=== PATIENT | female | born 1985 | race Caucasian/White ===

== ENCOUNTER 2018-04-30 10:56 | Outpatient (CLI) | payer MEDICAID, SELFPAY ==
[2018-04-30 12:18] LABS: HCG Quant, Pregnancy 12 mIU/mL (1-3)
== END 2018-04-30 10:57 ==
PROVIDERS: PCP Nurse Practitioner Family; Visit Provider Obstetrics & Gynecology Gynecology
DX: O00.90 Unspecified ectopic pregnancy without intrauterine pregnancy (principal)
CPT/HCPCS: 36415; 84702

== ENCOUNTER 2018-05-15 18:49 | Outpatient (REF) | payer MEDICAID, SELFPAY ==
[2018-05-15 21:20] LABS: TSH 2.04 uIU/mL (0.358-3.74)
== END 2018-05-15 18:50 ==
LOC: NCHCN 18:49
PROVIDERS: PCP Nurse Practitioner Family; Visit Provider Nurse Practitioner Family
DX: F41.1 Generalized anxiety disorder (principal); F43.10 Post-traumatic stress disorder, unspecified; Z86.59 Personal history of other mental and behavioral disorders
CPT/HCPCS: 84443

== ENCOUNTER 2018-06-12 14:49 | Outpatient (CLI) | payer MEDICAID, SELFPAY ==
[2018-06-12 16:41] LABS: HCG Quant, Pregnancy < 1 mIU/mL (1-3)
== END 2018-06-12 15:09 ==
PROVIDERS: Obstetrics & Gynecology; PCP Nurse Practitioner Family; Visit Provider Obstetrics & Gynecology Gynecology
DX: O00.90 Unspecified ectopic pregnancy without intrauterine pregnancy (principal)
CPT/HCPCS: 36415; 84702

== ENCOUNTER 2018-06-13 06:27 | Day surgery (SDC) | payer MEDICAID, SELFPAY ==
[2018-06-13] VITALS (8 sets, daily range): BP systolic 111–134; BP diastolic 67–80; PULSE 86–100; RESP 13–19; TEMP 36.2–36.8; O2SAT 94–98
--- NOTE | 2018-06-13 01:19 | HPE_ITS ---
Date of service: 06/12/18 Time of Service: 17:09 Assessment and Plan (1) Request for sterilization: Current visit: Yes Status: Acute (2) Abnormal uterine bleeding (AUB): Current visit: Yes Status: Acute Informed consent obtained risk of the procedure including bleeding injury to bowel bladder surrounding structures was described in detail to the patient she was given the opportunity to ask questions and have her questions answered. History of Present Illness Chief Complaint: Preoperative history and physical Narrative: Ms. Nino is a 32-year-old 012 female who presents for a preoperative history and physical in anticipation of a laparoscopic bilateral salpingectomy on 06/13/2018 patient has been seen in March and counseled regarding permanent sterilization. She is does not desire any future pregnancies she declines a Mirena IUD and has had 2 prior tubal sterilization as one the time of delivery and most recently as interval tubal sterilization after a following the tubal sterilization at the time of her delivery. Past OB history 2009 delivery of a male infant Marvin. 2010 repeat delivery female Chitra bilateral tubal sterilization performed at the time of the 2013 resulting in embryonic demise treated with a D&C 03/2016 positive home test serum hCG 150mIU/ml. Treated with methotrexate quantitative hCGs followed to normal. Review of Systems Constitutional Reports as per HPI Cardiovascular Reports system reviewed and no additional complaints, except as docu Respiratory Reports system reviewed and no additional complaints, except as docu Gastrointestinal Reports hematochezia (Reports bright red blood when wiping after BMs. 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 Smoking/Tobacco Use Status: Current every day alcohol intake: never seatbelt use: always Surgical History section Ligation of fallopian tube Female Reproductive History Menstrual Total pregnancies: 4 Full term: 2 Premature: 0 Ab induced: 0 Ab spontaneous: 1 Ectopics: 1 Multiple births: 0 Meds Home Medications Medication Instructions Recorded Confirmed Type sumatriptan succinate [Imitrex] 25 mg PO PRN 12/14/16 06/12/18 History buspirone 7.5 mg PO BID tab-cap 04/17/18 06/12/18 History fluoxetine 20 mg PO HS 04/17/18 06/12/18 History hydroxyzine HCl 25 mg PO PRN 04/17/18 06/12/18 History cholecalciferol (vitamin D3) 1,000 unit PO DAILY 06/12/18 06/12/18 History [Vitamin D3] ranitidine HCl [Zantac] 150 mg PO BID 06/12/18 06/12/18 History Allergies Allergy/AdvReac Type Severity Reaction Status Date / Time No Known Allergies Allergy Unverified 06/13/18 06:46 Exam Const General: cooperative, comfortable and no acute distress Nutritional Appearance: average body habitus Orientation: alert, awake and oriented x3 Resp Effort & Inspection: normal respiratory effort Auscultation: clear to auscultation bilaterally Cardio Jugular venous pressure: no JVD Palpation: normal PMI Rate: regular rate Rhythm: regular rhythm Heart Sounds: S1 normal and S2 normal GI Inspection: normal to inspection Palpation: soft and no hepatosplenomegaly Rectal Exam - female: deferred and other Back/Spine/Pelvis Back: no CVA tenderness Skin General skin exam: no rashes or lesions noted
[2018-06-13 06:53] LABS: HGB 12.3 g/dL (12.0-15.5); Mean Corp. HGB Concentration 33.2 g/dL (32.0-36.0); Mean Corpuscular Hemoglobin 30.5 pg (27.0-33.0); Mean Corpuscular Volume 91.8 fL (80-95); Mean Platelet Volume 9.4 fL (8.0-11.0); Platelet Count 216 x1000/uL (130-400); RBC 4.03 m/cumm (4.00-5.20); RBC Distribution Width 13.9 % (11.7-14.6)
[2018-06-13] MEDS: Lactated Ringers 1,000 ML 30 ML IV (07:07)
--- NOTE | 2018-06-13 08:55 | FALL_PTH ---
PATIENT: Delmy Morales LOC: [facility] U#:[id number] AGE/SX: 32/F ROOM: RE06/13/[address]: Niurka Correa : 1985 BED: DIS: 06/13/2018 SPEC #: [id number] RECD: 06/13/18 12:17 STATUS: NINFA WOMACK #: [id number] JOSH: 06/13/18 08:[address]: Niurka Correa DEPT: Surgical Specimen RECD BY: Galo Khan ENTERED: 06/13/18 12:20 SP TYPE: Fall OTHR DR: Taina Khan Tissues: 1 - FALLOPIAN TUBE (STERILIZATION) 2 - FALLOPIAN TUBE (STERILIZATION) 3 - VULVA BIOPSY Procedures: GROSS AND MICRO LEVEL 2 GROSS AND MICRO LEVEL 4 Comments: [id number]
[2018-06-13] MEDS: Bupivacaine 0.25% Pres-Free 30 ML VIAL (09:29)
[2018-06-13] MEDS: Silver Nitrate Stick 2 EACH (09:32)
[2018-06-13] MEDS: fentaNYL 100 MCG/2 ML VIAL IVP ×2 (10:04→10:11)
[2018-06-13] MEDS: HYDROmorphone 2 MG/ML VIAL IVP ×3 (10:09→10:29)
[2018-06-13] MEDS: Lactated Ringers 1,000 ML 125 ML IV (10:34)
[2018-06-13] MEDS: oxyCODONE 5 mg/Acetaminophen 325 mg TAB PO (11:07)
--- NOTE | 2018-06-13 20:42 | W.PM.OP ---
Date of service: 06/13/18 Time of Service: 20:42 Operative Note DATE OF PROCEDURE: 06/13/18 PRE-OP DIAGNOSIS: History of previous SABs after tubal sterilization POST-OP DIAGNOSIS: other (1. history of previous SABs after tubal sterilization 2. Pigmented nevi on right labia. 3. Hidradenitis suprativa of vulva) PROCEDURE: 1. Diagnostic laparoscopy with removal of distal right and left fallopian tubes. 2. Cauterization of bilateral uterine cornua. 3. Chromopertubation 4. Punch biopsy of pigmented nevus right labia minora. SURGEON: Niurka Correa [employer] FABRICATOR: Rosario Hernandes ANESTHESIA: GETA ESTIMATED BLOOD LOSS: 0 PATHOLOGY: other (Right and left distal fallopian tubes, right labia minora punch biopsy) COMPLICATIONS: None Patient was transported to: same day Patient's condition: stable Implants: None Indications: Patient is a 32-year-old female who underwent a tubal sterilization the time of a repeat delivery. She subsequently became with an experienced an embryonic demise. After that she then had a laparoscopic reexcision of fallopian tubes. In March she experienced a repeat with a low hCG and what appeared to be a ectopic location adnexa. She was treated with methotrexate with appropriate decline of her hCG. Findings: The uterine cornua showed excision of the proximal fallopian tube from the cornua to the mid isthmic portion. The distal fallopian tubes present and normal in appearance. The chromopertubation showed no leakage of methylene blue despite instillation of 30 cc of dye. It was unclear from the operative findings where the ectopic may have originated from. On examination of the vulva prior to the perineal prep there was a 2 mm dark pigmented flat region on the labia minora with an adjacent 2 mm flat pigmented lesion. Finding of hidradenitis suprativa bilaterally on vulva. Procedure Description: Patient was taken to the operating room where she is placed in the dorsal supine position and general endotracheal anesthesia was administered without difficulty. She was then placed in the dorsal lithotomy position in yellowfin stirrups in a neurologically neutral position. She was prepped and draped in the usual sterile fashion. The pigmented labia and the vulvar skin condition was noted at that time. A HSG catheter was inserted into the uterine cavity and left in place with methylene blue dye attached and a syringe. Attention was turned to her abdomen where the periumbilical skin was infiltrated with quarter percent Marcaine without epinephrine the skin incision was made in a transverse fashion below the umbilicus using a scalpel and the underlying subcutaneous tissue dissected bluntly to the level of the rectus fascia. Rectus fascia was then tented up 2 Koker clamps incised with curved Diaz scissors and the abdomen entered without difficulty. The rectus fascia was tagged with 0 Vicryl suture was held long. A 12 mm on trocar and sleeve were placed through the incision and pneumoperitoneum was achieved using carbon dioxide gas. Patient was placed in trendelenburg and a laparoscope was inserted and intra-abdominal placement confirmed. Two 5 mm skin incisions were made 2 cm medial to the anterior superior iliac crest after infiltration with quarter percent Marcaine. Under direct visualization 5 mm port was placed in each incision.. The uterus was carefully inspected with the above-noted findings. There is no evidence of any fallopian tube at the uterine cornua. No evidence of adhesive tissue at either uterine cornua and on chromopertubation no evidence of spillage of methylene blue from the uterine cornua or anywhere else along the uterine body. The fimbriated end of the right fallopian tube was grasped followed out to where it had been transected from the isthmic portion of the now missing fallopian tube and using a LigaSure bipolar device the fallopian tube was clamped and cauterized and transected from its attachments to the ovary. Once the right fallopian tube had been detached it was delivered through the 5 mm left port. A similar technique was carried out on the contralateral Thakur tube and it was detached without difficulty and delivered through the left port. Both pedicle sites were hemostatic at the completion of the procedure. After repeat inspection of the patient's pelvis and pedicle sites both 5 mm trochars were removed under direct visualization and the sites were noted be hemostatic. The 12 mm umbilical port was removed and pneumoperitoneum reduced and the umbilical incision reapproximated with interrupted sutures of 0 Vicryl. The skin of the umbilical incision was reapproximated with a subcuticular closure using 4-0 Vicryl. The 2 lower port sites were closed with skin glue. Attention was then turned to the patient's vulva where the skin of the right labial lesion was infiltrated with 1cc of 0.25% Marcaine and a 3 mm millimeters punch biopsy was performed. The tissue was collected and sent to pathology. The biopsy site was treated with silver nitrate and excellent hemostasis was achieved. HSG catheter bulb was deflated and the catheter removed. The patient was placed in the dorsal supine position awakened from anesthesia extubated transported to recovery area in stable condition all sponge lap and needle counts are correct ?2 she had SCDs in place during the entire case
== END 2018-06-13 11:40 | disposition home or self-care (01) ==
PROVIDERS: PCP Nurse Practitioner Family; Visit Provider Obstetrics & Gynecology Gynecology
PROC: (CPT 58661; principal; 2018-06-13 07:30)
DX: N99.89 Other postprocedural complications and disorders of genitourinary system (principal); L73.2 Hidradenitis suppurativa; D28.0 Benign neoplasm of vulva
CPT/HCPCS: 49320; 56605; 58350; 36415; 85027; 86850; 86900; 86901; 88305; NC; 88302; J1100; J1885; J2250; J2405; J3010

== ENCOUNTER 2018-08-10 02:49 | Outpatient (CLI) | payer MEDICAID, SELFPAY | END 2018-08-10 03:09 | PROVIDERS: PCP Nurse Practitioner Family; Visit Provider Nurse Practitioner Family | DX: R06.09 Other forms of dyspnea (principal) ==

== ENCOUNTER 2018-11-18 07:22 | Emergency (ER) | payer MEDICAID, SELFPAY ==
[2018-11-18 07:30] VITALS: BP 128/83; PULSE 117; RESP 16; TEMP 36.5; O2SAT 99
[2018-11-18] MEDS: Bupivacaine 0.5% Pres-Free 30 ML VIAL (08:30)
--- NOTE | 2018-11-18 08:41 | ED.GENADUL_ITS ---
Discharge Plan Disposition Patient Disposition: HOME Condition: Improving Discharge Details Chief Complaint: DentalOral Clinical Impression: Odontalgia Primary Care Provider: Carmen Mehta ED Provider: Bartolo Wharton Home Meds and New Rx's Prescriptions: New clindamycin HCl 300 mg capsule 300 mg PO QID Qty: 30 RF: 0 Continued ibuprofen 600 mg tablet 600 mg PO QID PRN (Reason: pain) Qty: 30 RF: 0 sumatriptan succinate [Imitrex] 25 MG tablet 25 mg PO PRN RF: 0 buspirone 7.5 MG tablet 7.5 mg PO BID RF: 0 hydroxyzine HCl 25 MG tablet 25 mg PO PRN RF: 0 fluoxetine 20 MG capsule 20 mg PO HS RF: 0 ranitidine HCl [Zantac] 150 mg Tablet 150 mg PO BID RF: 0 cholecalciferol (vitamin D3) [Vitamin D3] 1,000 unit Tablet 1,000 unit PO DAILY RF: 0 Discharge Instructions Instructions: Toothache (ED) Additional Instructions: Please follow-up with dentistry as planned. Tylenol and/or ibuprofen as needed for pain. Please take clindamycin as prescribed. You may stop the amoxicillin. Medical Decision Making 33-year-old female with odontalgia, chronic dental caries and missing teeth with plans for follow-up with dentistry. She has been on amoxicillin day 9 out of 10. She arrives in distress with right mandibular pain. No clear evidence of fluctuance.. Patient given a right inferior alveolar dental block with a 50-50 mix of 2 cc of lidocaine and Marcaine. Will place on clindamycin. She is given analgesia by mouth in the ED. Stable for outpatient management. Given information for additional dental resources. HPI General Mode of arrival: ambulatory . Date/Time Provider Initiated Documentation: 11/18/18 08:04 . Limitations to Documentation: no limitations . Information obtained by: patient . History of Present Illness 33 year old F presents to the emergency department with the chief complaint of Right lower dental pain, plan for extraction, on amoxicillin , described as moderate, Quality is described as aching, and is localized to the mouth and right. Patient reports no radiation. Patient started experiencing this day(s) and it has been constant. No relieving factors improve symptom(s), No exacerbating factors reported . Patient notes no other symptoms.. Patient did receive the following treatments prior to arrival, NSAID and other (Amoxicillin day 9 of 10) Related Data Home Medications Medication Instructions Recorded Confirmed sumatriptan succinate [Imitrex] 25 mg PO PRN 12/14/16 11/18/18 buspirone 7.5 mg PO BID tab-cap 04/17/18 11/18/18 fluoxetine 20 mg PO HS 04/17/18 11/18/18 hydroxyzine HCl 25 mg PO PRN 04/17/18 11/18/18 cholecalciferol (vitamin D3) 1,000 unit PO DAILY 06/12/18 11/18/18 [Vitamin D3] ranitidine HCl [Zantac] 150 mg PO BID 06/12/18 11/18/18 ibuprofen 600 mg tablet 600 mg PO QID PRN #30 tab 06/13/18 11/18/18 clindamycin HCl 300 mg PO QID #30 cap 11/18/18 Previous Rx's Medication Instructions Recorded ibuprofen 600 mg tablet 600 mg PO QID PRN #30 tab 06/13/18 clindamycin HCl 300 mg PO QID #30 cap 11/18/18 Allergies Allergy/AdvReac Type Severity Reaction Status Date / Time No Known Allergies Allergy Unverified 11/18/18 07:33 General Stated Complaint: DentalOral FRANKO: 4 Review of Systems Review of Systems 8 systems reviewed and otherwise neg PFSH Medical History Migraines (Chronic) Anxiety (Chronic) Depression (Chronic) Tobacco use (Acute) Surgical History section Ligation of fallopian tube Family History Father Heart disease Social History household members: other details: [employer] CHILDREN highest education level completed: some college, no degree Smoking and Tabacco status: Current every day alcohol intake: never Seatbelt use: always Female Reproductive History Menstrual control method: permanent sterilization History History 4 Para Hx # Term Pregnancies 2 Multiple births 0 Hx # Pregnancies 0 Ectopic pregnancies 1 AB induced Hx Number of Living Children AB spontaneous Exam Narrative Exam Narrative: GEN: awake, alert, oriented 3. Pleasant, tearful and anxious HEAD: Normocephalic, atraumatic ENT: Mucous membranes moist, partially edentulous with upper denture plate. Numerous dental caries and missing teeth lower. Tender along right mandible, no fluctuance. No buccal or lingual swelling. EYES: PERRL, EOMI NECK: Full ROM, no LIZETTE, no menigismus EXT: Full ROM, no edema, no rash Neuro: Grossly normal neurologic exam, conversant, interactive. Psych: Speech fluent, thoughts congruent, affect anxious Course Vital Signs Temperature 36.5 C 11/18/18 07:30 Pulse 117 H 11/18/18 07:30 Respiratory Rate 16 11/18/18 07:30 Blood Pressure 128/83 11/18/18 07:30 Pulse Oximetry 99 11/18/18 07:30 Temperature 36.5 C 11/18/18 07:30 Temperature Source Skin 11/18/18 07:30 Pulse 117 H 11/18/18 07:30 Respiratory Rate 16 11/18/18 07:30 Respiratory Effort Non-Labored 11/18/18 07:30 Blood Pressure 128/83 11/18/18 07:30 Blood Pressure Position Sitting 11/18/18 07:30 Pulse Oximetry 99 11/18/18 07:30 Oxygen Delivery Method Room Air 11/18/18 07:30 Oxygen Flow Rate 0 11/18/18 07:30 Pain Level 9 11/18/18 07:30
[2018-11-18] MEDS: HYDROcodone 5/Acetaminophen 325 TAB PO (09:23)
== END 2018-11-18 08:55 | disposition home or self-care (01) ==
PROVIDERS: Emergency Provider Emergency Medicine; PCP Nurse Practitioner Family
DX: R68.84 Jaw pain (principal); K08.89 Other specified disorders of teeth and supporting structures; K02.9 Dental caries, unspecified
CPT/HCPCS: 64402

== ENCOUNTER 2018-11-20 17:20 | Emergency (ER) | payer MEDICAID, SELFPAY ==
[2018-11-20 17:25] VITALS: BP 138/105; PULSE 89; RESP 20; TEMP 36.8; O2SAT 98
--- NOTE | 2018-11-20 17:41 | ED.GENADUL_ITS ---
Discharge Plan Disposition Patient Disposition: HOME Condition: Improving Discharge Details Chief Complaint: DentalOral Clinical Impression: Dental infection Primary Care Provider: Carmen Mehta ED Provider: Bartolo Wharton Home Meds and New Rx's Prescriptions: Continued ibuprofen 600 mg tablet 600 mg PO QID PRN (Reason: pain) Qty: 30 RF: 0 sumatriptan succinate [Imitrex] 25 MG tablet 25 mg PO PRN RF: 0 buspirone 7.5 MG tablet 7.5 mg PO BID RF: 0 hydroxyzine HCl 25 MG tablet 25 mg PO PRN RF: 0 fluoxetine 20 MG capsule 20 mg PO HS RF: 0 ranitidine HCl [Zantac] 150 mg Tablet 150 mg PO BID RF: 0 cholecalciferol (vitamin D3) [Vitamin D3] 1,000 unit Tablet 1,000 unit PO DAILY RF: 0 clindamycin HCl 300 mg capsule 300 mg PO QID Qty: 30 RF: 0 Discharge Instructions Additional Instructions: Home to rest this evening. Continue to hydrate with frequent sips of fluids. Ibuprofen 800 mg every 8 hours, with food. May use the provided hydrocodone for breakthrough pain if needed every 6 hours. Return tomorrow for recheck as we discussed. May return sooner for any acute concern. Medical Decision Making 33-year-old female presents from home with ongoing right-sided dental pain persistent since I saw her this past weekend. She is controlling her secretions, is not a change to voice, maintained her ability to swallow without difficulty. She does have soft tissue swelling on the right side of the face and is referred for laboratory testing and CT scan to rule out abscess/fluid collection. Patient's laboratories note a white blood cell count of 10, unremarkable chemistries. CT reveals irregularity of the maxilla and question of possible osteomyelitis. No focal fluid collection. Do not clinically feel that this represents osteomyelitis, but I do feels reasonable to administer a parenteral dose of clindamycin in the emergency department tonight, and have the patient return for recheck tomorrow at which point final reading of her CAT scan will be available and clinically she can be reevaluated. She will continue oral antibiotics as previously prescribed, NSAIDs, and will be dispensed small number of hydrocodone for home use this evening. HPI General Mode of arrival: ambulatory . Date/Time Provider Initiated Documentation: 11/20/18 17:28 . Limitations to Documentation: no limitations . Information obtained by: patient . History of Present Illness 33 year old F presents to the emergency department with the chief complaint of Right lower dental infection, pain, described as moderate, Quality is described as aching and dull, and is localized to the face and right. and it has been constant. No relieving factors improve symptom(s), No exacerbating factors reported . Patient notes other (No change to voice, no drooling); denies fever/chills. Patient did receive the following treatments prior to arrival, NSAID Related Data Home Medications Medication Instructions Recorded Confirmed sumatriptan succinate [Imitrex] 25 mg PO PRN 12/14/16 11/20/18 buspirone 7.5 mg PO BID tab-cap 04/17/18 11/20/18 fluoxetine 20 mg PO HS 04/17/18 11/20/18 hydroxyzine HCl 25 mg PO PRN 04/17/18 11/20/18 cholecalciferol (vitamin D3) 1,000 unit PO DAILY 06/12/18 11/20/18 [Vitamin D3] ranitidine HCl [Zantac] 150 mg PO BID 06/12/18 11/20/18 ibuprofen 600 mg tablet 600 mg PO QID PRN #30 tab 06/13/18 11/20/18 clindamycin HCl 300 mg PO QID #30 cap 11/18/18 11/20/18 Previous Rx's Medication Instructions Recorded ibuprofen 600 mg tablet 600 mg PO QID PRN #30 tab 06/13/18 clindamycin HCl 300 mg PO QID #30 cap 11/18/18 Allergies Allergy/AdvReac Type Severity Reaction Status Date / Time No Known Allergies Allergy Unverified 11/20/18 17:29 General Stated Complaint: DentalOral FRANKO: 3 Review of Systems Review of Systems 6 systems reviewed and otherwise in [facility] Social History household members: other details: [employer] CHILDREN highest education level completed: some college, no degree Smoking and Tabacco status: Current every day alcohol intake: never Seatbelt use: always Female Reproductive History Menstrual control method: permanent sterilization History History 4 Para Hx # Term Pregnancies 2 Multiple births 0 Hx # Pregnancies 0 Ectopic pregnancies 1 AB induced Hx Number of Living Children AB spontaneous Exam Narrative Exam Narrative: GEN: awake, alert, oriented 3. Pleasant, well groomed, interactive, in distress. HEAD: Normocephalic, atraumatic ENT: Mucous membranes moist, oropharynx partially edentulous with upper plate, numerous dental caries. Tender along the right mandible. No significant fluctuance EYES: PERRL, EOMI NECK: Full ROM, no LIZETTE, no menigismus CHEST/RESP: Nontender, clear to auscultation bilateral, no wheeze/rhonchi/rales CARDIOVASCULAR: RRR, no murmur, rub jordana. 2+ Rad pulse bilateral ABDOMEN: Soft, nontender, no mass. +Bowel sounds EXT: Full ROM, no edema, no rash Neuro: Grossly normal neurologic exam, conversant, interactive. Psych: Speech fluent, thoughts congruent, affect anxious Course Vital Signs Temperature 36.8 C 11/20/18 17:25 Pulse 89 11/20/18 17:25 Respiratory Rate 20 11/20/18 17:25 Blood Pressure 138/105 H 11/20/18 17:25 Pulse Oximetry 98 11/20/18 17:25 Temperature 36.8 C 11/20/18 17:25 Temperature Source Temporal Artery Scan 11/20/18 17:25 Pulse 89 11/20/18 17:25 Respiratory Rate 20 11/20/18 17:25 Respiratory Effort Non-Labored 11/20/18 17:25 Blood Pressure 138/105 H 11/20/18 17:25 Blood Pressure Position Sitting 11/20/18 17:25 Pulse Oximetry 98 11/20/18 17:25 Oxygen Delivery Method Room Air 11/20/18 17:25 Oxygen Flow Rate 0 11/20/18 17:25 Pain Level 10 11/20/18 17:25
[2018-11-20] MEDS: Normal Saline Flush 10 ML SYR IVP ×2 (17:59→18:06)
[2018-11-20] MEDS: Dexamethasone 10 MG/ML VIAL IVP (17:59)
[2018-11-20] MEDS: Ketorolac 30 MG/ML VIAL IVP (17:59)
[2018-11-20] MEDS: Omnipaque 350 MG/ML 100 ML BTL IJ (18:01)
[2018-11-20 18:02] LABS: Abs Immature Grans 0.01 k/cumm (0.0-0.09); Absolute Basophil Count 0.01 k/cumm (0.0-0.2); Absolute Eosinophil Count 0.21 k/cumm (0.0-0.7); Absolute Lymphocyte Count 3.04 k/cumm (1.2-3.4); Absolute Monocyte Count 0.51 k/cumm (0.11-0.7); Absolute Neutrophil Count 6.42 k/cumm (1.2-6.7); Basophils % 0.1; Eosinophils % 2.1; HCT 35.3 % (36.0-46.0); HGB 12.1 g/dL (12.0-15.5); Immature Grans % 0.1; Lymphocytes % 29.8; Mean Corp. HGB Concentration 34.3 g/dL (32.0-36.0); Mean Corpuscular Hemoglobin 30.8 pg (27.0-33.0); Mean Corpuscular Volume 89.8 fL (80-95); Mean Platelet Volume 8.9 fL (8.0-11.0); Neutrophils % 62.9; Platelet Count 225 x1000/uL (130-400); RBC 3.93 m/cumm (4.00-5.20); RBC Distribution Width 13.8 % (11.7-14.6)
--- NOTE | 2018-11-20 18:10 | DI.CT_ITS ---
SYMPTOM/DIAGNOSIS: RT FACE SWELLING, ODONTALGIA FACIAL CT: CT scan of the face was performed following the uneventful administration of intravenous contrast material. The visualized intracranial structures are unremarkable. The orbits and retro-orbital soft tissues are unremarkable. The patient's maxillary teeth have been removed. There is some irregularity of the cortex of the maxilla in this region. There appear to be destructive or erosive changes present. There is some soft tissue thickening, particularly around the maxilla and a small amount of air is seen in the soft tissues in this region. There is mild mucosal thickening in the left maxillary sinus. The remaining visualized paranasal sinuses are clear. No fluid levels are seen. No acute fracture or dislocation is appreciated. IMPRESSION: Cortical irregularity seen around the maxillary/aveolar ridge. Infectious process cannot be excluded. Inflammatory changes around the maxilla. Phlegmon cannot be excluded.
[2018-11-20 18:19] LABS: Anion Gap 7.8 mmol/L (3-11); BUN 8 mg/dL (7-18); CO2 30.2 mmol/L (21.0-32.0); CREATININE 0.95 mg/dL (0.55-1.02); Chloride 102 mmol/L (98-107); Glucose 73 mg/dL (70-100); Sodium 140 mmol/L (136-145)
--- NOTE | 2018-11-20 18:34 | DI.VRAD_ITS ---
EXAM: CT Maxillofacial With Contrast EXAM DATE/TIME: 11/20/2018 5:37 PM CLINICAL HISTORY: 33 years old, female; Signs and symptoms; Other: R face swelling, odontalgia; Additional info: R face swelling, odontalgia pain since 11/19 TECHNIQUE: Axial computed tomography images of the face with intravenous contrast. All CT scans at this facility use at least one of these dose optimization techniques: automated exposure control; mA and/or kV adjustment per patient size (includes targeted exams where dose is matched to clinical indication); or iterative reconstruction. Coronal and sagittal reformatted images were created and reviewed. CONTRAST: Contrast Material: 100 ml of omnipaque 350; Contrast Route: iv COMPARISON: No relevant prior studies available. FINDINGS: Orbits: The globes and extraocular musculature are intact. Sinuses: There is slight mucosal thickening of the left maxillary sinus. Bones/joints: See Dental Finding. Dental: The patient's upper teeth have been removed. The maxilla appears somewhat irregular. There are slight destructive changes. These findings are suspicious for osteomyelitis. Clinical correlation is recommended. The patient has a few remaining teeth within the mandible. The mandible itself appears within normal limits. Soft tissues: There is soft tissue swelling at the level of the maxilla. There are droplets of gas at this level. A phlegmon at this level is not excluded as well. IMPRESSION: 1. Suspect osteomyelitis involving the maxilla. Clinical correlation is recommended. A surrounding phlegmon is not totally excluded. Again clinical correlation is recommended. 2. Sinusitis as above. Dictated and Authenticated by: Ino Marie MD. Ordering:DEIDRA Mcfarland MD
[2018-11-20] MEDS: CLINDAMYCIN 900 MG/50 ML BAG 50 MG IVPB (18:54)
[2018-11-20] MEDS: HYDROcodone 5/Acetaminophen 325 TAB PO (19:06)
== END 2018-11-20 19:49 | disposition home or self-care (01) ==
PROVIDERS: Emergency Provider Emergency Medicine; PCP Nurse Practitioner Family
DX: R22.0 Localized swelling, mass and lump, head (principal); K04.7 Periapical abscess without sinus; K08.89 Other specified disorders of teeth and supporting structures
CPT/HCPCS: 36415; 80048; 96365; 96375; 99285; 70487; 85025; 99284; J1100; J1885; J3490

== ENCOUNTER 2018-11-21 17:35 | Emergency (ER) | payer MEDICAID, SELFPAY ==
[2018-11-21 17:38] VITALS: BP 125/71; PULSE 63; RESP 12; TEMP 37.2; O2SAT 99
--- NOTE | 2018-11-21 18:02 | ED.FU.B_ITS ---
Follow Up Plan: Patient was seen here yesterday with a CT scan obtained. She was given IV clindamycin and told to return for a recheck today to make sure she is doing okay. She reports no fevers. She reports decreased pain and swelling. She is afebrile here. She is able to open her mouth fairly well. She has mild right mandibular swelling. There is no erythema. She has no oral swelling or drainage. She is working on getting an appointment at [facility]. Will have her continue oral clindamycin until it is done. Use ibuprofen or acetaminophen for pain. Return here if she is worse in any way.
== END 2018-11-21 18:07 ==
PROVIDERS: Emergency Provider Emergency Medicine; PCP Nurse Practitioner Family
DX: K04.7 Periapical abscess without sinus (principal)

== ENCOUNTER 2019-06-27 16:34 | Outpatient (REF) | payer MEDICAID, SELFPAY ==
[2019-06-27 18:39] LABS: HCT 35.6 % (36.0-46.0); HGB 12.1 g/dL (12.0-15.5); Mean Corpuscular Hemoglobin 29.9 pg (27.0-33.0); Mean Corpuscular Volume 87.9 fL (80-95); Mean Platelet Volume 9.6 fL (8.0-11.0); Platelet Count 233 x1000/uL (130-400); RBC 4.05 m/cumm (4.00-5.20); RBC Distribution Width 13.5 % (11.7-14.6)
[2019-06-27 19:10] LABS: Iron 27 ug/dL (50-175); Total Iron Binding Capacity 290 ug/dL (250-450); Transferrin Sat 9 % (15-50)
== END 2019-06-27 16:54 ==
LOC: NCHCO 16:34
PROVIDERS: PCP Nurse Practitioner Family; Visit Provider Nurse Practitioner Family
DX: R61 Generalized hyperhidrosis (principal); R53.83 Other fatigue
CPT/HCPCS: 85027; 83540; 83550; 84443

== ENCOUNTER 2019-07-20 10:16 | Emergency (ER) | payer MEDICAID, SELFPAY ==
[2019-07-20 10:19] VITALS: BP 117/77; PULSE 84; RESP 18; TEMP 36.6; O2SAT 98
--- NOTE | 2019-07-20 11:02 | DI.US_ITS ---
EXAM: US ABDOMEN LIMITED CLINICAL HISTORY: RUQ pain, r/o cholecystitis, NAUSEA, DIARRHEA TECHNIQUE: Ultrasound performed using standard protocol. COMPARISON: TRANSVAGINAL OB ULTRASOUND from 04/23/2018 FINDINGS: The aorta is unremarkable as visualized. The inferior vena cava is unremarkable. The liver measures 11.2 cm in length. No hepatic masses are seen. There is hepatopetal flow through the portal vein. There is a small amount of sludge seen within the gallbladder. No stones or gallbladder wall thicken ing is seen. No pericholecystic fluid is present. There is a negative sonographic Roldan's sign. The common duct is within normal limits at 2.6 mm. Visualized pancreas is unremarkable. Right kidne y is unremarkable. IMPRESSION: Small amount of gallbladder sludge. No gallstones or biliary ductal dilatation.
[2019-07-20] MEDS: Ondansetron O.D.T. 4 MG TABEF PO (11:42)
[2019-07-20] MEDS: Normal Saline 1,000 ML 1000 ML IV (11:43)
[2019-07-20 11:44] LABS: Abs Immature Grans 0.02 k/cumm (0.0-0.09); Absolute Basophil Count 0.02 k/cumm (0.0-0.2); Absolute Eosinophil Count 0.17 k/cumm (0.0-0.7); Absolute Lymphocyte Count 2.56 k/cumm (1.2-3.4); Absolute Monocyte Count 0.42 k/cumm (0.11-0.7); Absolute Neutrophil Count 4.04 k/cumm (1.2-6.7); Basophils % 0.3; Eosinophils % 2.4; HCT 38.2 % (36.0-46.0); HGB 12.8 g/dL (12.0-15.5); Immature Grans % 0.3; Lymphocytes % 35.4; Mean Corp. HGB Concentration 33.5 g/dL (32.0-36.0); Mean Corpuscular Hemoglobin 29.5 pg (27.0-33.0); Mean Platelet Volume 9.1 fL (8.0-11.0); Monocytes % 5.8; Neutrophils % 55.8; Platelet Count 261 x1000/uL (130-400); RBC 4.34 m/cumm (4.00-5.20); RBC Distribution Width 13.9 % (11.7-14.6); White Blood Cell Count 7.23 k/cumm (4.4-10.8)
[2019-07-20 11:56] LABS: ALT 25 U/L (14-59); AST 18 U/L (15-37); Albumin 3.2 g/dL (3.4-5.0); Alkaline Phosphatase 94 U/L (46-116); Anion Gap 7.8 mmol/L (3-11); BUN 4 mg/dL (7-18); Bilirubin, Total 0.2 mg/dL (0.2-1.0); CO2 26.2 mmol/L (21.0-32.0); CREATININE 0.84 mg/dL (0.55-1.02); Calcium 8.9 mg/dL (8.5-10.1); Chloride 104 mmol/L (98-107); Glucose 89 mg/dL (70-100); Lipase 64 U/L (73-393); Potassium 3.8 mmol/L (3.5-5.1); Sodium 138 mmol/L (136-145)
--- NOTE | 2019-07-20 12:50 | ED.GENADUL_ITS ---
Discharge Plan Disposition Patient Disposition: HOME Discharge Details Chief Complaint: Abd Prob Clinical Impression: Abdominal pain, Pulmonary nodule Primary Care Provider: Carmen Mehta ED Provider: Panchito Hernandez Home Meds and New Rx's Prescriptions: Continued ibuprofen 600 mg tablet 600 mg PO QID PRN (Reason: pain) Qty: 30 RF: 0 sumatriptan succinate [Imitrex] 25 MG tablet 25 mg PO PRN RF: 0 buspirone 7.5 MG tablet 7.5 mg PO BID RF: 0 hydroxyzine HCl 25 MG tablet 25 mg PO PRN RF: 0 ranitidine HCl [Zantac] 150 mg Tablet 150 mg PO BID RF: 0 cholecalciferol (vitamin D3) [Vitamin D3] 1,000 unit Tablet 1,000 unit PO DAILY RF: 0 citalopram [Celexa] 20 mg Tablet 20 mg PO DAILY RF: 0 Discontinued clindamycin HCl 300 mg capsule 300 mg PO QID Qty: 30 RF: 0 Discharge Instructions Instructions: Abdominal Pain (ED) Additional Instructions: Please contact your primary care physician to arrange follow-up. Patient were discussed results of your imaging studies including incidentally noted pulmonary nodules with your doctor. Additional diagnostic testing may be necessary. Return to the ER immediately for any worsening or new concerning symptoms. Discharge Data Discharge Date/Time-TO BE ENTERED AT DEPARTURE: 07/20/19 19:05 Medical Decision Making <SULEIMAN Bahena - Last Filed: 07/21/19 13:41> Is a 33-year-old patient who presents for right-sided chest and right upper quadrant pain with radiation up toward her shoulder. Patient reports pain is worse with eating onset yesterday with mild associated malaise, nausea and diarrhea. Patient has no obvious difficulty breathing at this time. Denies fever or chills. On exam patient has no reproducible right-sided chest pain however does have moderate right upper quadrant pain with palpation. Patient had no significant relief with a GI cocktail. Labs and ultrasound ordered for concern of cholecystitis. Patient's initial labs are normal. Patient's vital signs are normal. Patient's initial EKG reveals a heart rate of 60 with normal intervals and no appreciable ST segment changes. No ischemic pattern. This was reviewed with my attending Dr. Wharton. I do not feel ACS is likely given patient's presentation and age in conjunction with the associated right upper quadrant tenderness. Patient is a smoker. No recent travel. No cancer history. Patient's ultrasound does not reveal any acute cholecystitis findings. Mild sludge present. Given patient's persistent of her pain and she does have a mildly ill appearance. Discussed patient's presentation with my attending Dr. Wharton. We will extend her evaluation to include a d-dimer and a CT scan of her chest if warranted based on her d-dimer as well as her abdomen and pelvis. Patient reevaluated she did receive mild improvement with morphine. Chest x-ray unremarkable today for any acute finding. Patient be signed out pending CT scans. My expectation is if CT scans are unremarkable gastritis or gastric ulcer remain possibility based on patient's presentation and complaints today. We did discuss use of outpatient medications if her remaining imaging studies are unremarkable. <Panchito Hernandez MD - Last Filed: 07/21/19 18:40> 17:00 --patient initially evaluated and treated by SULEIMAN Chao. Please see her documentation regarding initial ED presentation and course. Care signed out by SULEIMAN Chao with plan to follow-up on CT imaging. Labs were reviewed and nondiagnostic. D-dimer elevated at 599. 18:28 -- CT of the chest interpreted by radiology: IMPRESSION: 1. Good pulmonary opacification without pulmonary embolus. 2. Nonspecific diffuse groundglass opacity of the lungs likely relating to hypoventilation. 3. Evidence of emphysema upper lobes. 4. Scattered calcified granuloma. 5. Sub-5 mm pulmonary nodules. If patient does not have known cancer, follow up should be based on clinical information because of the low risk of cancer in this age group. (John et al., Fleischner Society, 2017) CT of the abdomen and pelvis interpreted by radiology: IMPRESSION: 1. There no CT findings to account for the patient's right upper quadrant pain. 2. There are 3 approximately 3 cm left ovarian cysts with a small amount of free pelvic fluid. No further followup of these would be suggested based on SRU guidelines. Patient was reassessed. She notes she is feeling better. Patient ambulated around the emergency department without any discomfort. Disposition decision was made weighing the risks and benefits of hospitalization versus outpatient treatment, the risk for further decompensation, and the patient's wishes. The patient was stable and requested discharge. Prior to discharge, all results were reviewed with the patient, my usual and customary return precautions were reviewed with the patient - this included follow-up instructions and reason to return to the emergency department if condition worsens, does not improve as expected, or other new concerns arise. HPI <SULEIMAN Bahena - Last Filed: 07/21/19 13:41> General Date/Time Provider Initiated Documentation: 07/20/19 10:34 . HPI Narrative: Is a 33-year-old patient who presents for complaints of right-sided chest and upper abdominal pain which began yesterday morning which woke her from sleep at approximately 2:30 in the morning. Patient reports pain was approximately 7 or 8 out of 10. Patient reports right-sided pain beneath her right breast in addition to right upper abdominal pain and epigastric pain. Patient reports pain radiating to her right shoulder/neck. Patient denies fever chills. Patien t does report mild nausea. Denies vomiting. Patient does report mild diarrhea present without constipation. Patient reports the pain has been fairly constant worse with eating. Mildly relieved with position however whether laying flat or sitting upright. Patient does report shifting positions is somewhat helpful. No specific position of comfort. Patient denies urinary urgency, frequency or dysuria. Denies any hematuria. Denies any lower abdominal discomfort. Patient reports no significant relief with ibuprofen at home. Patient does report she drinks a lot of caffeine, is a daily smoker. Is not concerned with as she has had her tubes tied, then later ligated. Patient does admit to mild malaise. Related Data Home Medications Medication Instructions Recorded Confirmed sumatriptan succinate [Imitrex] 25 mg PO PRN 12/14/16 07/20/19 buspirone 7.5 mg PO BID tab-cap 04/17/18 07/20/19 hydroxyzine HCl 25 mg PO PRN 04/17/18 07/20/19 cholecalciferol (vitamin D3) 1,000 unit PO DAILY 06/12/18 07/20/19 [Vitamin D3] ranitidine HCl [Zantac] 150 mg PO BID 06/12/18 07/20/19 ibuprofen 600 mg tablet 600 mg PO QID PRN #30 tab 06/13/18 07/20/19 citalopram [Celexa] 20 mg PO DAILY 07/20/19 07/20/19 Previous Rx's Medication Instructions Recorded ibuprofen 600 mg tablet 600 mg PO QID PRN #30 tab 06/13/18 Allergies Allergy/AdvReac Type Severity Reaction Status Date / Time No Known Allergies Allergy Unverified 07/20/19 10:22 General Stated Complaint: Chest Pain FRANKO: 3 Review of Systems <SULEIMAN Bahena - Last Filed: 07/21/19 13:41> All systems reviewed & are unremarkable except as noted in HPI and below Constitutional Constitutional: Denies chills, Denies fever(s), Denies headache(s) and Reports malaise ENT Ears, Nose, Mouth, and Throat: Denies headache(s) Gastrointestinal Gastrointestinal: Reports abdominal pain, Denies cramping, Reports heartburn, Reports diarrhea, Reports nausea and Denies vomiting Genitourinary Genitourinary: Denies flank pain Neurologic Neurologic: Denies headache(s) PFSH <SULEIMAN Bahena - Last Filed: 07/21/19 13:41> Medical History Anxiety (Chronic) Depression (Chronic) Migraines (Chronic) Tobacco use (Acute) Surgical History section 2009. [place] 2011. [place]. BTL done at time of C/S. 2012. D&C for embryonic demise. Ligation of fallopian tube 2010 BTL @ time of C/S. 2013 LTL after embryonic demise. Social History Smoking/Tobacco Use Status: Current every day Alcohol Intake: never Drug use: Never Household members: other Details: [employer] CHIL[employer] Seatbelt use: always Do you feel safe at home: Yes Do you feel safe in your relationship?: Yes Female Reproductive History Menstrual control method: permanent sterilization History History 4 Para Hx # Term Pregnancies 2 Multiple births 0 Hx # Pregnancies 0 Ectopic pregnancies 1 AB induced Hx Number of Living Children AB spontaneous Exam <SULEIMAN Bahena - Last Filed: 07/21/19 13:41> Narrative Exam Narrative: CONST: Healthy appearing patient, in no acute distress. Well hydrated. Alert and alert. HENMT: Head nomocephalic, normal to inspection. Atraumatic. Hearing grossly normal. EYES: General normal appearance. Alignment normal. Eyelids normal. Conjunctiva normal. NECK: Normal visual inspection. FROM. Trachea midline. No Midline tenderness. No cervical lymphadenopathy. CHEST: Normal insepection of the chest. No reproducible chest pain with palpation. No palpable tenderness of the right chest or sternum. RESP: Normal respiratory effort. Speaking full sentences. No cough. No audible wheezing. No retractions. Breath sounds are full and equal bilaterally. No rales, rhonchi or wheezing. Mild increase in pain with deep breathing. CARDIO: No JVD. No murmurs, rubs. Regular rate and rhythm. GI; abdomen is soft. Bowel sounds are present in all 4 quadrants. Patient does have epigastric tenderness with palpation as well as moderate right upper quadrant pain with palpation. No lower abdominal pain with palpation. No obvious rebound, guarding or peritoneal signs. Back; no CVA tenderness bilaterally. MUSCULOSKELETAL: Normal Gait. FROM of all extremities. SKIN: Normal. Dry. No rashes. NEURO: Alert and awake. Speech clear. PSYCH: Normal affect. Cooperative. Course <SULEIMAN Bahena - Last Filed: 07/21/19 13:41> Vital Signs Vital signs: Vital Signs Temperature 36.6 C 07/20/19 10:19 Pulse 84 07/20/19 10:19 Respiratory Rate 18 07/20/19 10:19 Blood Pressure 117/77 07/20/19 10:19 Pulse Oximetry 98 07/20/19 10:19 Temperature 36.6 C 07/20/19 10:19 Temperature Source Temporal Artery Scan 07/20/19 10:19 Pulse 84 07/20/19 10:19 Respiratory Rate 18 07/20/19 10:19 Respiratory Effort Non-Labored 07/20/19 10:19 Blood Pressure 117/77 07/20/19 10:19 Pulse Oximetry 98 07/20/19 10:19 Oxygen Delivery Method Room Air 07/20/19 10:19 Oxygen Flow Rate 0 07/20/19 10:19 Pain Level 8 07/20/19 10:19 Lab/Test Results Lab/Test Results: Laboratory Tests Range/Units 07/20/19 07/20/19 10:45 10:45 WBC (4.4-10.8) k/cumm 7.23 RBC (4.00-5.20) m/cumm 4.34 Hgb (12.0-15.5) g/dL 12.8 Hct (36.0-46.0) % 38.2 MCV (80-95) fL 88.0 MCH (27.0-33.0) pg 29.5 MCHC (32.0-36.0) g/dL 33.5 RDW (11.7-14.6) % 13.9 Plt Count (130-400) x1000/uL 261 MPV (8.0-11.0) fL 9.1 Immature Gran % 0.3 Neutrophils % 55.8 Lymphocytes % 35.4 Monocytes % 5.8 Eosinophils % 2.4 Basophils % 0.3 Absolute Neutrophils (1.2-6.7) k/cumm 4.04 Absolute Lymphocytes (1.2-3.4) k/cumm 2.56 Absolute Monocytes (0.11-0.7) k/cumm 0.42 Absolute Eosinophils (0.0-0.7) k/cumm 0.17 Absolute Basophils (0.0-0.2) k/cumm 0.02 Sodium (136-145) mmol/L 138 Potassium (3.5-5.1) mmol/L 3.8 Chloride (98-107) mmol/L 104 Carbon Dioxide (21.0-32.0) mmol/L 26.2 Anion Gap (3-11) mmol/L 7.8 BUN (7-18) mg/dL 4 L Creatinine (0.55-1.02) mg/dL 0.84 Estimated GFR/1.73 m2 (mL/min/1.73m2) >= 60.00 Glucose (70-100) mg/dL 89 Calcium (8.5-10.1) mg/dL 8.9 Total Bilirubin (0.2-1.0) mg/dL 0.2 AST (15-37) U/L 18 ALT (14-59) U/L 25 Alkaline Phosphatase (46-116) U/L 94 Total Protein (6.4-8.2) g/dL 7.0 Albumin (3.4-5.0) g/dL 3.2 L Lipase (73-393) U/L 64 L Sign Out <SULEIMAN Bahena - Last Filed: 07/21/19 13:41> Sign Out Data: Sign Out Comment: Patient signed out pending CT chest for PE as well as for CT abdomen for right upper quadrant pain. Last updated by Pamela Shields PA at 07/20/19 17:03
--- NOTE | 2019-07-20 12:51 | DI.RAD_ITS ---
EXAM: XR CHEST 2V PA LATERAL INDICATION: chest pain. COMPARISON: No exams were available for comparison TECHNIQUE: 2D digital imaging was performed. FINDINGS: Heart and pulmonary vasculature are within normal limits. The lungs are clear. No effusion or pneum othorax is identified. No acute osseous abnormality is identified. IMPRESSION: No acute pulmonary process.
[2019-07-20] MEDS: ACETAMINOPHEN 1,000 MG/100 ML BTL 400 MG IVPB (12:57)
--- NOTE | 2019-07-20 14:00 | DI.VRAD_ITS ---
PROCEDURE INFORMATION: Exam: US Abdomen Limited, Right Upper Quadrant Exam date and time: 07/20/2019 12:41 PM Clinical history: 33 years old, female; Nausea; Other: Ruq pain radiating to chest and back. ; Patient HX: Ruq pain x 2 days - R/O cholecystitis TECHNIQUE: Imaging protocol: Real-time ultrasound of the abdomen with image documentation. Examination was focused on the right upper quadrant. COMPARISON: No relevant prior studies available. FINDINGS: Liver: Normal. No masses. Gallbladder: Mild gallbladder sludge noted. No gallstones. No gallbladder wall thickening or pericholecystic fluid. Common bile duct: Normal. No stones. No dilation. Pancreas: Visualized pancreas is unremarkable. Right kidney: Normal. No mass. No hydronephrosis. IMPRESSION: Mild gallbladder sludge. Otherwise unremarkable study. No gallstones or evidence of biliary obstruction. Dictated and Authenticated by: Michael Hart MD. Ordering:ANIBAL Santiago MD
[2019-07-20 14:06] LABS: Bilirubin Negative (Negative); Blood Negative (Negative); Clarity Clear (Clear); Glucose Negative (Negative); Ketones Negative (Negative); Leukocyte Esterase Negative (Negative); Nitrite Negative (Negative); Specific Gravity 1.015 (1.005-1.025); Urobilinogen 0.2 EU/dL (Up TO 0.2)
--- NOTE | 2019-07-20 14:41 | DI.VRAD_ITS ---
PROCEDURE INFORMATION: Exam: XR Chest, 2 Views Exam date and time: 07/20/2019 2:38 PM Clinical history: 33 years old, female; Other: Chest pain TECHNIQUE: Imaging protocol: XR of the chest Views: 2 views. COMPARISON: No relevant prior studies available. FINDINGS: Lungs: Unremarkable. No consolidation. Pleural space: Unremarkable. No pleural effusion. No pneumothorax. Heart/Mediastinum: Unremarkable. No cardiomegaly. Bones/joints: No acute bony findings. IMPRESSION: Normal chest x-ray. Dictated and Authenticated by: Michael Hart MD. Ordering:ANIBAL Santiago MD
[2019-07-20 15:12] LABS: D-Dimer 599 ng/mlFEU (<500)
--- NOTE | 2019-07-20 16:59 | DI.CT_ITS ---
EXAM: CT CHEST PE ABD PELVIS W CLINICAL HISTORY: right chest pain, RUQ pain TECHNIQUE: Axial CT angiography was performed with multislice acquisition and multiplanar and/or 3D reconstructions. The exam was performed with intravenous infusion of 100 cc's of Omnipaque 350. COMPARISON: ABD PELVIS WITH CONTRAST from 04/23/2018 FINDINGS: There is no evidence of a pulmonary embolus. The thoracic aorta is of normal caliber. No evidence o f aneurysm or dissection. The heart size is within normal limits. There is no evidence of a pulmona ry embolus. No evidence of right heart strain is present. No significant thoracic adenopathy is pre sent. No pleural effusion or pneumothorax is present. Dependent atelectatic changes are seen in the lungs. Dependent ground-glass opacities are present in the lungs which likely reflect atelectasis a nd low lung volumes. There are calcified lymph nodes seen in the lungs consistent with prior granulo matous disease. There appear to be a few tiny, less than 3 mm noncalcified pulmonary nodules. The l argest measures 2.5 mm and is located in the left upper lobe (series 6, image 249). No acute osseous abnormalities identified. The liver is normal in size. There is focal fatty infiltration seen in the left lobe. No suspicious hepatic mass is seen. The portal, superior mesenteric, and splenic veins are patent. The gallbladd er is negative. There is no biliary ductal dilatation. The pancreas, spleen and adrenal glands are all unremarkable. The kidneys show normal and symmetric enhancement. No evidence of a solid renal m ass or obstructive uropathy is present. The urinary bladder is intact. There are 3 left ovarian cys ts present. Each measuring at least 3 cm in diameter. Bilateral involuting or follicular cysts are seen in the ovaries. There is a trace amount of free fluid in the pelvis. This is likely physiologi c. Bowel is unremarkable. There is a normal appendix present. The abdominal aorta is of normal sayra iber. No aneurysmal dilatation is present. No significant abdominal or pelvic adenopathy or pneumop eritoneum is present. No acute osseous abnormality is seen in the bones. IMPRESSION: 1. No evidence of a pulmonary embolus, thoracic aortic dissection or aneurysm. 2. Nonspecific ground-glass opacities in the lung bases likely reflecting decreased volume. 3. A few nonspecific less than 5 mm noncalcified pulmonary nodules. Follow-up based on the patient's risk factors for lung disease. 4. No evidence of an acute abdomen. 5. Left ovarian follicular cysts. Each measuring at least 3 cm in diameter.
[2019-07-20] MEDS: Normal Saline Flush 10 ML SYR IVP (17:00)
[2019-07-20] MEDS: Omnipaque 350 MG/ML 100 ML BTL IJ (17:00)
--- NOTE | 2019-07-20 18:09 | DI.VRAD_ITS ---
PROCEDURE INFORMATION: Exam: CT Angiography Chest With Contrast Exam date and time: 07/20/2019 3:45 PM Clinical history: 33 years old, female; Other: Ruq pain; Other: Right chest pain TECHNIQUE: Imaging protocol: Computed tomographic angiography of the chest with intravenous contrast. 3D rendering: MIP reconstructed images were created and reviewed. Radiation optimization: All CT scans at this facility use at least one of these dose optimization techniques: automated exposure control; mA and/or kV adjustment per patient size (includes targeted exams where dose is matched to clinical indication); or iterative reconstruction. COMPARISON: CT ABD PELVIS WITH CONTRAST 04/23/2018 2:03 PM FINDINGS: Pulmonary arteries: There is good pulmonary opacification without pulmonary embolus. Aorta: Unremarkable. No aortic aneurysm. No aortic dissection. Lungs: There is nonspecific groundglass opacity of the lungs in dependent portions likely representing low lung volumes. There is additional dependent atelectasis. There are a few scattered pulmonary sub-5 mm calcified granuloma. There also some noncalcified sub-5 mm pulmonary nodules including a 2.5 mm nodule in the left upper lobe (series 6 image 249). There are small cystic spaces in the upper lobes bilaterally greater on the right than the left possibly representing emphysema. Pleural space: Unremarkable. No pneumothorax. No pleural effusion. Heart: Unremarkable. No cardiomegaly. No pericardial effusion. Lymph nodes: Unremarkable. No enlarged lymph nodes. Bones/joints: Unremarkable. No acute fracture. Soft tissues: Unremarkable. IMPRESSION: 1. Good pulmonary opacification without pulmonary embolus. 2. Nonspecific diffuse groundglass opacity of the lungs likely relating to hypoventilation. 3. Evidence of emphysema upper lobes. 4. Scattered calcified granuloma. 5. Sub-5 mm pulmonary nodules. If patient does not have known cancer, follow up should be based on clinical information because of the low risk of cancer in this age group. (John et al., Fleischner Society, 2017) PROCEDURE INFORMATION: Exam: CT Abdomen And Pelvis With Contrast Exam date and time: 07/20/2019 3:45 PM Clinical history: 33 years old, female; Other: Ruq pain; Other: Right chest pain TECHNIQUE: Imaging protocol: Computed tomography of the abdomen and pelvis with intravenous contrast. Radiation optimization: All CT scans at this facility use at least one of these dose optimization techniques: automated exposure control; mA and/or kV adjustment per patient size (includes targeted exams where dose is matched to clinical indication); or iterative reconstruction. Contrast material: OMNIPAQUE 350; Contrast volume: 100 ml; Contrast route: IV; COMPARISON: CT ABD PELVIS WITH CONTRAST 04/23/2018 2:03 PM FINDINGS: Liver: There is focal fatty infiltration along the anterior margin of segment 4 near the falciform ligament. This is more pronounced than the comparison study. There is a 3 mm hyperdense focus in segment 7 just below the diaphragmatic dome (series 12 image 113). Additional 3 mm hypodense focus noted in segment 5 (series 12 image 268). These findings are retrospectively present on the prior study and no further followup would be suggested. The liver is otherwise unremarkable. Gallbladder and bile ducts: Normal. No calcified stones. No ductal dilation. Pancreas: Normal. No ductal dilation. Spleen: Normal. No splenomegaly. Adrenals: Normal. No mass. Kidneys and ureters: Normal. No hydronephrosis. Stomach and bowel: Unremarkable. No obstruction or bowel wall thickening. Appendix: The appendix is normal. Appendix: No evidence of appendicitis. Intraperitoneal space: There is a small amount of free simple pelvic fluid. Vasculature: Unremarkable. No abdominal aortic aneurysm. Lymph nodes: Unremarkable. No enlarged lymph nodes. Bladder: Unremarkable as visualized. Reproductive: There are 3 left ovarian cysts which each measure nearly 3 cm in diameter. Multiple additional involuting cysts or follicles are noted in each ovary. Bones/joints: Unremarkable. No acute fracture. Soft tissues: Unremarkable. IMPRESSION: 1. There no CT findings to account for the patient's right upper quadrant pain. 2. There are 3 approximately 3 cm left ovarian cysts with a small amount of free pelvic fluid. No further followup of these would be suggested based on SRU guidelines. Dictated and Authenticated by: Sean Anthony MD. Ordering:ANIBAL Santiago MD
== END 2019-07-20 19:05 | disposition home or self-care (01) ==
PROVIDERS: Physician Assistant; Emergency Provider Student in an Organized Health Care Education/Training Program; PCP Nurse Practitioner Family
DX: R10.11 Right upper quadrant pain (principal); R91.1 Solitary pulmonary nodule
CPT/HCPCS: 36415; 71275; 74177; 80053; 83690; 93005; 96361; 96365; 96375; 96376; 99285; 71046; 76705; 81003; 85025; 85379; 93010; J0131; J3490

== ENCOUNTER 2020-01-29 18:44 | Outpatient (REF) | payer MEDICAID, SELFPAY ==
[2020-01-29 19:58] LABS: ALT 24 U/L (14-59); AST 25 U/L (15-37); Albumin 3.4 g/dL (3.4-5.0); Alkaline Phosphatase 84 U/L (46-116); BUN 8 mg/dL (7-18); Bilirubin, Total 0.2 mg/dL (0.2-1.0); CREATININE 1.04 mg/dL (0.55-1.02); Calcium 8.7 mg/dL (8.5-10.1); Chloride 101 mmol/L (98-107); Glucose 82 mg/dL (74-106); Sodium 140 mmol/L (136-145); Total Protein 6.4 g/dL (6.4-8.2)
[2020-01-29 19:59] LABS: Abs Immature Grans 0.02 k/cumm (0.0-0.09); Absolute Basophil Count 0.02 k/cumm (0.0-0.2); Absolute Eosinophil Count 0.21 k/cumm (0.0-0.7); Absolute Lymphocyte Count 2.91 k/cumm (1.2-3.4); Absolute Neutrophil Count 8.32 k/cumm (1.2-6.7); Basophils % 0.2; Eosinophils % 1.7; HGB 12.2 g/dL (12.0-15.5); Immature Grans % 0.2 %; Lymphocytes % 24.1; Mean Corp. HGB Concentration 33.9 g/dL (32.0-36.0); Mean Corpuscular Hemoglobin 30.4 pg (27.0-33.0); Mean Corpuscular Volume 89.8 fL (80-95); Mean Platelet Volume 9.7 fL (8.0-11.0); Neutrophils % 68.8; Platelet Count 221 x1000/uL (130-400); RBC 4.01 m/cumm (4.00-5.20); White Blood Cell Count 12.09 k/cumm (4.4-10.8)
== END 2020-01-29 19:04 ==
LOC: NCHCN 18:44
PROVIDERS: Family Medicine; PCP Nurse Practitioner Family; Visit Provider Midwife
DX: R10.11 Right upper quadrant pain (principal)
CPT/HCPCS: 80053; 85025

== ENCOUNTER 2024-03-17 11:50 | Emergency (ER) | payer MEDICAID, SELFPAY ==
[2024-03-17 11:55] VITALS: BP 108/62; PULSE 65; RESP 18; TEMP 37; O2SAT 99
[2024-03-17 12:05] VITALS: RESP 14
[2024-03-17 12:32] LABS: Abs Immature Grans 0.01 10^3/uL (0.0-0.06); Absolute Basophil Count 0.03 10^3/uL (0.0-0.2); Absolute Lymphocyte Count 2.59 10^3/uL (1.2-3.4); Absolute Monocyte Count 0.36 10^3/uL (0.1-0.8); Absolute Neutrophil Count 1.89 10^3/uL (1.2-6.7); Basophils % 0.6 %; Eosinophils % 3.9 %; HCT 33.5 % (36.0-46.0); HGB 11.3 g/dL (11.2-15.7); Immature Grans % 0.2 %; MCH 31.2 pg (27.0-33.0); MCHC 33.7 % (32.0-36.0); MCV 93 fL (80-95); MPV 9.2 fL (8.0-11.0); Monocytes % 7.1 %; Neutrophils % 37.2 %; Platelet Count 179 10^3/uL (130-400); RBC 3.62 10^6/uL (3.93-5.22); RDW 12.1 % (11.7-14.6); RDW-SD 41.4 fL; WBC 5.08 10^3/uL (4.4-10.8)
[2024-03-17 12:49] LABS: ALT 38 U/L (14-59); AST 29 U/L (15-37); Albumin 3.4 g/dL (3.4-5.0); Alkaline Phosphatase 69 U/L (46-116); Anion Gap 9.5 mmol/L (3-11); BUN 11 mg/dL (7-18); Bilirubin, Total 0.36 mg/dL (0.2-1.0); CO2 26.5 mmol/L (21.0-32.0); CREATININE 1.1 mg/dL (0.55-1.02); Calcium 8.5 mg/dL (8.5-10.1); Chloride 104 mmol/L (98-107); Estimated GFR 66.78 (mL/min/1.73m2); Glucose 98 mg/dL (74-106); Sodium 140 mmol/L (136-145); Total Protein 6.3 g/dL (6.4-8.2)
[2024-03-17 12:56] LABS: Bilirubin Negative (Negative); Blood Moderate (Negative); Clarity Clear (Clear); Glucose Negative (Negative); Ketones Negative (Negative); Leukocyte Esterase Negative (Negative); Nitrite Negative (Negative); Specific Gravity >= 1.030 (1.005-1.025); Urobilinogen 0.2 mg/dL (Up to 0.2); pH 5.5 (5-8)
[2024-03-17 13:11] LABS: Bacteria Moderate HPF (Negative); C & S Indicated? No/Sq. Contamination; Casts Negative LPF (Negative); Crystals Negative HPF (Negative); Epithelial Cells Many HPF (Negative); Mucus Moderate (Negative); Other Cells Negative (Negative); WBC 0-2 HPF (0-5)
[2024-03-17 14:03] LABS: NT-proBNP 396 pg/mL (<300)
--- NOTE | 2024-03-17 14:34 | W.ED.GENAD ---
Discharge Plan Disposition Patient Disposition: Home Condition: Good Discharge Details Clinical Impression: Asymptomatic microscopic hematuria, Mild peripheral edema Primary Care Provider: Carmen Carrizales ED Provider: Jono Jon Home Meds and New Rx's Prescriptions: Discontinued ibuprofen 600 mg tablet 600 mg PO QID PRN (Reason: pain) Qty: 30 0RF No Action sumatriptan succinate [Imitrex] 25 MG tablet 25 mg PO PRN buspirone 7.5 MG tablet 7.5 mg PO BID hydroxyzine HCl 25 MG tablet 50 mg PO DAILY Zantac 150 mg Tablet 150 mg PO BID cholecalciferol (vitamin D3) [Vitamin D3] 1,000 unit Tablet 1,000 unit PO DAILY citalopram [Celexa] 20 mg Tablet 20 mg PO DAILY clonidine HCl 0.1 mg tablet 0.1 mg PO DAILY Patient Comments: TAKE 1 TABLET BY MOUTH AT NIGHT NEEDED FOR SYMPTOMS prazosin 2 mg capsule 2 mg PO QHS Patient Comments: TAKE 1 CAPSULE BY MOUTH 1 TIME PER DAY methadone 10 mg/mL concentrate 120 mg PO DAILY Discharge Instructions Instructions: Swelling Additional Instructions: At this time your laboratory workup has returned and is notably stable. As we discussed together you do have a very slight increase in your renal function which may suggest mild early renal disease. Your urine also does show microscopic hematuria which could reflect very mild early glomerular nephritis. As your swelling is thankfully minimal it would be my recommendations to initially start a trial of salt restrictions. Please do your best to eliminate the majority of salt from your diet. Avoiding preserved foods, excessively salty foods, or added salt. We have placed a referral with [facility] for nephrology for further testing. Please follow closely with your primary care provider for reassessment. Please avoid any ibuprofen use as this can worsen your renal function. Please take Tylenol as needed for pain. Please use Voltaren gel on hard your joints if you have a specific joint that is overly painful and not easily managed by the Tylenol. If you notice any worsening of your symptoms, or any new symptoms such as vomiting, diarrhea, fever, chills, shortness of breath, chest pain, numbness, weakness, or fainting , please return immediately to the emergency department for reevaluation. Please follow up with your primary care provider as soon as possible for reassessment and reevaluation. As always, it was a pleasure participating in your medical care today. Referrals: Carmen Carrizales [Primary Care Provider] - [facility] General Date/Time Provider Initiated Documentation: 03/17/24 11:56. HPI Narrative: 38-year-old female with past medical history of migraine, depression, previous miscarriage, who presents today for evaluation of edema. Patient states that for the last year she has felt slightly swollen. Over the last week it has gotten slightly worse. She admits to mild joint achiness, but denies any fever, chills, recent sore throats, trauma or new medications. Family history is positive for her brother having some form of nephritic/nephrotic syndrome and he in his 30s. She does not know the exact name of what it was. Patient has been taking occasional ibuprofen to help with joint pain. No other complaints at this time. No other modifying factors. Related Data Home Medications Medication Instructions Recorded Confirmed sumatriptan succinate 25 mg tablet 25 mg PO PRN 12/14/16 03/17/24 (Imitrex) buspirone 7.5 mg tablet 7.5 mg PO BID 04/17/18 03/17/24 hydroxyzine HCl 25 mg tablet 50 mg PO DAILY 04/17/18 03/17/24 cholecalciferol (vitamin D3) 25 1,000 unit PO DAILY 06/12/18 03/17/24 mcg (1,000 unit) tablet (Vitamin D3) ranitidine HCl 150 mg tablet 150 mg PO BID 06/12/18 03/17/24 (Zantac) citalopram 20 mg tablet (Celexa) 20 mg PO DAILY 07/20/19 03/17/24 clonidine HCl 0.1 mg tablet 0.1 mg PO DAILY 03/17/24 03/17/24 methadone 10 mg/mL oral concentrate 120 mg PO DAILY 03/17/24 03/17/24 prazosin 2 mg capsule 2 mg PO QHS 03/17/24 03/17/24 Allergies Allergy/AdvReac Type Severity Reaction Status Date / Time No Known Allergies Allergy Unverified 03/17/24 11:57 General Stated Complaint: GenMedical FRANKO: 3 Review of Systems All systems reviewed & are unremarkable except as noted in HPI and below Exam Narrative Exam Narrative: 1.Const: Well-nourished, Well-developed, appearing stated age 2.Eyes: PERRL, no conjunctival injection, and symmetrical lids. 3.ENT: Atraumatic external nose and ears. Moist MM. Neck: Symmetric, trachea midline, No thyromegaly. 4.CVS: +S1/S2, No murmurs or gallops. Peripheral pulses 2+ and equal in all extremities. Brisk capillary refill in all extremities. 5.RESP: Unlabored respiratory effort. Clear to auscultation bilaterally. No wheezes rales or rhonchi 6.GI: Soft, Nontender/Nondistended, No hepatosplenomegaly. No guarding or rebound. 7.MSK: Normocephalic/Atraumatic, Extremities w/o deformity or ttp No cyanosis or clubbing, Normal movement of all extremities. No significant palpable pitting edema for upper or lower extremities whatsoever. Potential nearly imperceptible edema in the pretibial space, but this is notably minimal. 8.Skin: Warm, Dry. No rashes or lesions. 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 Sensation grossly intact, no focal neurologic deficits. 10.Psych: (AAO) x3. Appropriate mood and affect Course Vital Signs Vital signs: Vital Signs Temperature 37.0 C 03/17/24 11:55 Pulse 65 03/17/24 11:55 Respiratory Rate 18 03/17/24 11:55 Blood Pressure 108/62 03/17/24 11:55 Pulse Oximetry 99 03/17/24 11:55 Temperature 37.0 C 03/17/24 11:55 Temperature Source Temporal Artery Scan 03/17/24 11:55 Pulse 65 03/17/24 11:55 Respiratory Rate 14 03/17/24 12:05 Respiratory Effort Normal, Non-Labored 03/17/24 12:05 Respiratory Depth Normal 03/17/24 12:05 Respiratory Pattern Normal 03/17/24 12:05 Blood Pressure 108/62 03/17/24 11:55 Blood Pressure Position Sitting 03/17/24 11:55 Pulse Oximetry 99 03/17/24 11:55 Oxygen Delivery Method Room Air 03/17/24 11:55 Oxygen Flow Rate 0 03/17/24 11:55 Pain Level 7 03/17/24 12:05 Lab/Test Results Lab/Test Results: Laboratory Tests Range/Units 03/17/24 03/17/24 12:24 12:47 WBC (4.4-10.8) 10^3/uL 5.08 RBC (3.93-5.22) 10^6/uL 3.62 L Hgb (11.2-15.7) g/dL 11.3 Hct (36.0-46.0) % 33.5 L MCV (80-95) fL 93 MCH (27.0-33.0) pg 31.2 MCHC (32.0-36.0) % 33.7 RDW (11.7-14.6) % 12.1 Plt Count (130-400) 10^3/uL 179 MPV (8.0-11.0) fL 9.2 Immature Gran % % 0.2 Neutrophils % % 37.2 Lymphocytes % % 51.0 Monocytes % % 7.1 Eosinophils % % 3.9 Basophils % % 0.6 Nucleated RBC % (0.0-0.3) % 0.0 Absolute Neutrophils (1.2-6.7) 10^3/uL 1.89 Absolute Lymphocytes (1.2-3.4) 10^3/uL 2.59 Absolute Monocytes (0.1-0.8) 10^3/uL 0.36 Absolute Eosinophils (0.0-0.7) 10^3/uL 0.20 Absolute Basophils (0.0-0.2) 10^3/uL 0.03 Sodium (136-145) mmol/L 140 Potassium (3.5-5.1) mmol/L 4.0 Chloride (98-107) mmol/L 104 Carbon Dioxide (21.0-32.0) mmol/L 26.5 Anion Gap (3-11) mmol/L 9.5 BUN (7-18) mg/dL 11 Creatinine (0.55-1.02) mg/dL 1.1 H Est GFR (CKD-EPI 2020) (mL/min/1.73m2) 66.78 Glucose (74-106) mg/dL 98 Calcium (8.5-10.1) mg/dL 8.5 Total Bilirubin (0.2-1.0) mg/dL 0.36 AST (15-37) U/L 29 ALT (14-59) U/L 38 Alkaline Phosphatase (46-116) U/L 69 NT-Pro-B Natriuret Pep (<300) pg/mL 396 H Total Protein (6.4-8.2) g/dL 6.3 L Albumin (3.4-5.0) g/dL 3.4 Urine Color (Yellow) Yellow Urine Clarity (Clear) Clear Urine pH (5-8) 5.5 Ur Specific [place] (1.005-1.025) >= 1.030 H Urine Protein (Neg-Trace) mg/dL Negative Urine Ketones (Negative) mg/dL Negative Urine Blood (Negative) Moderate H Urine Nitrite (Negative) Negative Urine Bilirubin (Negative) Negative Urine Urobilinogen (Up to 0.2) mg/dL 0.2 Ur Leukocyte Esterase (Negative) Negative Urine RBC (0-2) HPF 10-20 H Urine WBC (0-5) HPF 0-2 Ur Epithelial Cells (Negative) HPF Many Urine Crystals (Negative) HPF Negative Urine Bacteria (Negative) HPF Moderate Urine Casts (Negative) LPF Negative Urine Mucus (Negative) Moderate Urine Other (Negative) Negative Ur Culture Indicated? No/Sq. Contamination Urine Glucose (Negative) mg/dL Negative POC- Test(urine) Negative Medical Decision Making 38-year-old female with past medical history of migraine, depression, previous miscarriage, who presents today for evaluation of edema. Patient states that for the last year she has felt slightly swollen. Over the last week it has gotten slightly worse. She admits to mild joint achiness, but denies any fever, chills, recent sore throats, trauma or new medications. Family history is positive for her brother having some form of nephritic/nephrotic syndrome and he in his 30s. She does not know the exact name of what it was. Patient has been taking occasional ibuprofen to help with joint pain. No other complaints at this time. No other modifying factors. Exam demonstrates well-appearing female, no significant edema, no evidence of crackles in the lungs, or other abnormalities. There is potential minimal trace barely perceptible pitting edema over the pretibial spaces, but this is again notably minimal. Concern for CHF, glomerular nephritis, nephrotic syndrome, electrolyte abnormality, or other etiology. We will perform POCUS of the patient's heart, get laboratory workup, monitor closely and reassess. No indication for emergent diuresis secondary to the notably benign amount of nearly imperceptible swelling/edema. 2:46 PM White count normal, platelets normal, electrolytes normal, creatinine 1.1, GFR 66.78, pending serum and urine osmolality. proBNP is benign at 396, albumin is 3.4, urinalysis shows a specific gravity greater than 1.03, with moderate blood and 10-20 RBCs. She has no flank pain or dysuria to suggest kidney stone. Urine protein level is negative. No WBCs, no leuk esterase, negative nitrites. Symptoms appear inconsistent with fulminant nephrotic or nephritic syndrome at this stage. This may represent early glomerular nephritis though. Bedside limited echo demonstrates no evidence of CHF or diminished ejection fraction. Lungs are clear, no hypoxemia to suggest pulmonary edema. Patient is otherwise notably stable. Patient stable for discharge. Will place outpatient referral with [facility] nephrology. Will recommend close follow-up with her primary care provider. At this stage we will not diurese as there is no clinical indication, however we will recommend salt abstinence, as well as avoidance of ibuprofen/Motrin. I have extensively reviewed the treatment plan and discharge instructions with the patient and their family. I have addressed all patient concerns at this time. The patient and family was made aware of what symptoms to monitor for that would warrant a return to the emergency department. Discussed the plan with the patient and family, they demonstrate verbal understanding and agreement with our assessment and plan at this time. The documentation in this chart was dictated using [employer] dictation software. Please excuse any dictation errors. Quality:SDOH Health Related Social Needs: Health related social needs material hardship, food insecurity, transpo insecurity, personal safety PFSH All Active Problems Mild peripheral edema (Acute) Asymptomatic microscopic hematuria (Acute) Threatened miscarriage in early (Acute 04/19/18) Menorrhagia (Acute 12/14/16) Unspecified ectopic without intrauterine (Acute 04/19/18) RX MTX 04/22/18. 04/23/18 Admitted for observation with L flank pain. hCG decreasing appropriately. No intervention. Pt will f/u 04/30/18. Dysmenorrhea (Acute 12/14/16) Abnormal uterine bleeding (AUB) (Acute) Request for sterilization (Acute) Migraines (Chronic) Anxiety (Chronic) Depression (Chronic) Tobacco use (Acute) Surgical History Ligation of fallopian tube 2010 BTL @ time of C/S. 2013 LTL after embryonic demise. section 2010. [place] 2011. [place]. BTL done at time of C/S. 2012. D&C for embryonic demise. Family History Father Heart disease Social History Smoking/Tobacco Use Status: Current every day Tobacco Type: e-cigarettes Smoking risk assessment performed?: Yes Alcohol Intake: never Drug use: Occasionally Substance use type: marijuana Household members: other Details: [employer] CHILDR[employer] Seatbelt use: always Do you feel safe at home: Yes Do you feel safe in your relationship?: Yes Female Reproductive History Menstrual control method: permanent sterilization History History 4 Para Hx # Term Pregnancies 2 Multiple births 0 Hx # Pregnancies 0 Ectopic pregnancies 1 AB induced Hx Number of Living Children AB spontaneous POCUS Exam (ED) Limited Cardiac Exam DATE OF EXAM: 03/17/24 TIME OF EXAM: 14:50 PROVIDER THAT PERFORMED THE STUDY: Jono Jon IS THIS A REPEAT EXAM DURING THIS ENCOUNTER: no REASON FOR EXAM: Other (Edema) indication: Edema VISUALIZED STRUCTURES: Left atrium, Left ventricle, Right ventricle, Mitral valve and Interventricular septum VIEW OBTAINED: Parasternal long-axis PERTINENT FINDINGS/IMPRESSION: No apparent abnormalities Exam complete
--- NOTE | 2024-03-17 14:42 | NUR.NOTE ---
Nursing Note: referral to [facility] Nephrology given to Care Management for suspected glomerulonephritis, 2 months.
[2024-03-17 14:54] VITALS: BP 111/73; PULSE 97; RESP 12; TEMP 36.6; O2SAT 97
[2024-03-18 18:00] LABS: Osmolality, Urine 895 mOsm/kg (150-1150)
[2024-03-18 20:00] LABS: Osmolality Serum 286 mOsm/kg (275-295)
== END 2024-03-17 14:55 | disposition home or self-care (01) ==
PROVIDERS: Emergency Provider Student in an Organized Health Care Education/Training Program; PCP Nurse Practitioner Family
DX: R31.21 Asymptomatic microscopic hematuria (principal); R60.9 Edema, unspecified; F17.290 Nicotine dependence, other tobacco product, uncomplicated
CPT/HCPCS: 36415; 80053; 83935; 93308; 99285; 81003; 81015; 83880; 83930; 85025; 99284

== ENCOUNTER 2024-04-17 14:24 | Outpatient (REF) | payer MEDICAID, SELFPAY ==
[2024-04-17 16:23] LABS: Absolute Basophil Count 0.03 10^3/uL (0.0-0.2); Absolute Eosinophil Count 0.16 10^3/uL (0.0-0.7); Absolute Lymphocyte Count 2.28 10^3/uL (1.2-3.4); Absolute Monocyte Count 0.28 10^3/uL (0.1-0.8); Absolute Neutrophil Count 1.57 10^3/uL (1.2-6.7); Basophils % 0.7 %; Eosinophils % 3.7 %; HCT 35.7 % (36.0-46.0); HGB 11.8 g/dL (11.2-15.7); Lymphocytes % 52.8 %; MCH 30.2 pg (27.0-33.0); MCHC 33.1 % (32.0-36.0); MCV 91 fL (80-95); MPV 9.3 fL (8.0-11.0); Monocytes % 6.5 %; Neutrophils % 36.3 %; Platelet Count 205 10^3/uL (130-400); RBC 3.91 10^6/uL (3.93-5.22); RDW 11.9 % (11.7-14.6); RDW-SD 40.2 fL; WBC 4.32 10^3/uL (4.4-10.8)
[2024-04-17 16:27] LABS: ESR 4 mm/hr (0-20)
[2024-04-17 16:39] LABS: Bilirubin Negative (Negative); Blood Negative (Negative); Clarity Clear (Clear); Glucose Negative (Negative); Ketones Negative (Negative); Leukocyte Esterase Negative (Negative); Nitrite Negative (Negative); Urobilinogen 0.2 mg/dL (Up to 0.2); pH 8.5 (5-8)
[2024-04-17 16:43] LABS: ALT 68 U/L (14-59); AST 41 U/L (15-37); Albumin 3.8 g/dL (3.4-5.0); Alkaline Phosphatase 92 U/L (46-116); Anion Gap 8.6 mmol/L (3-11); BUN 12 mg/dL (7-18); Bilirubin, Total 0.24 mg/dL (0.2-1.0); C-Reactive Protein < 0.50 mg/dL (<or=0.5); CO2 29.4 mmol/L (21.0-32.0); CREATININE 1.1 mg/dL (0.55-1.02); Chloride 103 mmol/L (98-107); Estimated GFR 66.78 (mL/min/1.73m2); Glucose 99 mg/dL (74-106); Potassium 4.3 mmol/L (3.5-5.1); Sodium 141 mmol/L (136-145); TSH (W/Ref FT4) 2.88 uIU/mL (0.36-3.74); Total Protein 6.6 g/dL (6.4-8.2); Uric Acid 3.5 mg/dL (2.6-6.0)
[2024-04-17 16:53] LABS: Bacteria Rare HPF (Negative); Crystals Few Amorphous HPF (Negative); Epithelial Cells Few HPF (Negative); RBC 0-2 HPF (0-2); WBC Negative HPF (0-5)
[2024-04-17 16:54] LABS: C & S Indicated? No; Casts Negative LPF (Negative); Mucus Negative (Negative)
[2024-04-17 21:48] LABS: Rheumatoid Factor 9.2 IU/mL (<12.0)
[2024-04-18 12:38] LABS: ANA Interpretation Negative (Negative)
== END 2024-04-17 14:25 | disposition home or self-care (01) ==
LOC: NCHCN 14:24
PROVIDERS: PCP Nurse Practitioner Family; Visit Provider Nurse Practitioner Family
DX: M25.59 Pain in other specified joint (principal); R63.5 Abnormal weight gain; R82.998 Other abnormal findings in urine
CPT/HCPCS: 80053; 85652; 81003; 81015; 84443; 84550; 85025; 86038; 86140; 86431

== ENCOUNTER 2024-10-09 15:07 | Outpatient (REF) | payer MEDICAID, SELFPAY ==
--- NOTE | 2024-10-09 14:15 | PAPFT_PTH ---
PATIENT: Delmy Morales LOC: [facility]#:[id number] AGE/SX: 39/F ROOM: RE10/09/[address]: Kandice Escobedo : 1985 BED: DIS: 10/09/2024 SPEC #: [id number] RECD: 10/10/24 13:06 STATUS: NINFA REPat #: [id number] JOSH: 10/09/24 14:[address]: Kandice Escobedo DEPT: [facility] Cytology RECD BY: Charlene Ortiz ENTERED: 10/10/24 13:06 SP TYPE: PAPFT CIELO DR: Unknown,Unknown Tissues: 1 - CX/ENDOCX FOR PAP SMEARS Procedures: PAP THIN PREP/[facility] Screening HPV DNA PROBE Comments: [id number] (HPV 16 & 18/45)
== END 2024-10-09 15:08 | disposition home or self-care (01) ==
LOC: NCHCN 15:07
PROVIDERS: Visit Provider Family Medicine
DX: Z12.4 Encounter for screening for malignant neoplasm of cervix (principal)
CPT/HCPCS: 88142; 87624

== ENCOUNTER 2024-12-25 17:39 | Outpatient (REF) | payer MEDICAID, SELFPAY ==
[2024-12-25 16:53] LABS: ALT 49 U/L (14-59); AST 37 U/L (15-37); Alkaline Phosphatase 88 U/L (46-116); Anion Gap 9.2 mmol/L (3-11); BUN 7 mg/dL (7-18); Bilirubin, Total 0.4 mg/dL (0.2-1.0); CO2 27.8 mmol/L (21.0-32.0); CREATININE 1.2 mg/dL (0.55-1.02); Calcium 9.4 mg/dL (8.5-10.1); Chloride 103 mmol/L (98-107); Estimated GFR 59.79 (mL/min/1.73m2); Glucose 91 mg/dL (74-106); Potassium 4.6 mmol/L (3.5-5.1); Sodium 140 mmol/L (136-145)
== END 2024-12-25 17:40 | disposition home or self-care (01) ==
LOC: NCHCN 17:39
PROVIDERS: Visit Provider Nurse Practitioner Family
DX: R74.01 Elevation of levels of liver transaminase levels (principal)
CPT/HCPCS: 80053

== ENCOUNTER 2025-04-22 16:25 | Outpatient (REF) | payer MEDICAID, SELFPAY ==
[2025-04-22 20:39] LABS: Anion Gap 10.0 mmol/L (3-11); BUN 9 mg/dL (7-18); CO2 26.0 mmol/L (21.0-32.0); Calcium 9.4 mg/dL (8.5-10.1); Chloride 102 mmol/L (98-107); Estimated GFR 66.37 (mL/min/1.73m2); Glucose 91 mg/dL (74-106); Magnesium 2.3 mg/dL (1.8-2.4); Potassium 4.0 mmol/L (3.5-5.1); Sodium 138 mmol/L (136-145)
== END 2025-04-22 16:26 | disposition home or self-care (01) ==
LOC: NCHCN 16:25
PROVIDERS: Visit Provider Nurse Practitioner Family
DX: R60.0 Localized edema (principal)
CPT/HCPCS: 80048; 83735